=== PATIENT | female | born 1965 | race Caucasian/White ===

== ENCOUNTER → 2017-08-29 | Outpatient (CLI) | payer OTHER ==
--- NOTE | 2017-08-29 09:12 | Diagnostic Imaging Report ---
Indication: Abdominal pain Technique: Continuous helical transaxial imaging of the abdomen and pelvis was obtained from the lung bases to the pubic symphysis during intravenous contrast administration. Coronal 2-D reformats were also obtained. Study obtained in a Siemens sensation [address] Automatic Exposure Control was utilized. Total Dose length Product (DLP): 1094.[address] Dose Index Volume (CTDIvol): 19.95 mGy Comparison: None Findings: In the areas sigmoid colon there is a small amount of the perisigmoid soft tissue stranding of fat likely due to inflammation and findings probably on the basis of mild diverticulitis. There are diverticula within this segment of the colon noted. There is no abscess or free fluid identified. Staple line in the stomach indicative of gastric bypass are noted. There is a catheter tracking subcutaneously entering the left upper quadrant of the abdomen the functional which is not known. Cholecystectomy clips are present. There is a large ventral hernia that is complex. The upper part of the hernia contains a mesenteric fat and a small portion of the colon. The lower part of the hernia, which is much larger contains mesenteric fat and loops of small bowel. There is an anterolisthesis of L4 on 5. There is a pars interarticularis defect demonstrated at L4. Hypertrophied facets noted in the lower part of the lumbar spine. Narrowing and vacuum phenomenon of the intervertebral disc noted at this level. IMPRESSION: Mild sigmoid diverticulitis suspected. Please correlate clinically. No abscess. Partially calcified are normal appendix. Status post gastric bypass. L4 spondylolysis. Grade 1 spondylolisthesis L4 on 5. Degenerative disease. Large ventral hernia as described above. Other incidental findings as above. [facility] has communicated the preliminary results to the Emergency Department. Their findings are largely concordant with this report. The CT scanner at [facility] is accredited by the [employer] and the scans are performed using dose optimization techniques as appropriate to a performed exam including Automatic Exposure control.
== END | disposition home or self-care (01) ==
LOC: RAD 00:48
DX: R10.9 Unspecified abdominal pain (principal); K57.92 Diverticulitis of intestine, part unspecified, without perforation or abscess without bleeding; Z98.84 Bariatric surgery status; M47.896 Other spondylosis, lumbar region; K43.9 Ventral hernia without obstruction or gangrene
CPT/HCPCS: 74177; Q9967